=== PATIENT | male | born 1980 | race African-American/Black ===

== ENCOUNTER 2024-05-12 13:11 | Emergency (ER) | payer BC, SELFPAY ==
[2024-05-12 13:51] LABS: #Basophils 0.1 thou/uL (0.0-0.2); #Lymphocytes 1.8 thou/uL (1.20-3.40); #Monocytes 0.7 thou/uL (0.11-0.59); #Neutrophils 6.3 thou/uL (1.40-6.50); %Basophils 0.9 % (0.0-1.0); %Eosinophils 0.4 % (0.0-10.0); %Lymphocytes 20.5 % (21.0-51.0); %Monocytes 7.5 % (0.0-10.0); %Neutrophils 70.7 % (42.0-75.0); Hemoglobin 10.8 g/dL (14.0-18.0); Mean Corpuscular HGB CONC 27.7 g/dL (32.0-36.0); Mean Corpuscular Hemoglobin 23.2 pg (27.0-31.0); Mean Corpuscular Volume 83.9 fl (78.0-98.0); Mean Platelet Volume 9.2 fL (7.4-10.4); Platelet Count 143 10x3/uL (130-400); RBC Distribution Width 16.7 % (11.5-14.5); Red Blood Cell (RBC) Count 4.65 mill/uL (4.70-6.10); White Blood Cell (WBC) Count 8.9 10x3/uL (4.8-10.8)
[2024-05-12 14:07] LABS: ALT (SGPT) 197 U/L (Less than 45); AST (SGOT) 84 U/L (11-34); Albumin 2.1 g/dL (3.1-4.5); Alkaline Phosphatase 675 U/L (40-110); Anion Gap 20 mmol/L (10-20); BUN (Urea Nitrogen) 31 mg/dL (8.9-20.6); Bilirubin, Total 1.5 mg/dL (0.3-1.2); Calc. Creatinine Clearance 0 mL/min (70-130); Calcium 8.9 mg/dL (7.8-10.44); Carbon Dioxide 22 mmol/L (22-29); Chloride 97 mmol/L (98-107); Estimated GFR 51; Globulin 4.7 g/dL (2.4-3.5); Potassium 4.7 mmol/L (3.5-5.1); Protein, Total 6.8 g/dL (6.0-8.3); Sodium 134 mmol/L (136-145)
[2024-05-12 14:11] LABS: Glucose 438 mg/dL (70-105)
[2024-05-12 14:11] LABS: Troponin I 2.991 ng/mL (< 0.028)
[2024-05-12 14:15] LABS: INR-International Normal Ratio 1.3; Prothrombin Time 16.3 sec (12.0-14.7)
[2024-05-12 14:16] LABS: PTT 26.9 sec (22.9-36.1)
[2024-05-12] MEDS ORDERED: Aspirin Chewable 81 MG TAB ONE (14:24)
[2024-05-12] MEDS ORDERED: Nitroglycerin 0.4 MG TAB 1 EACH ONE (14:24)
[2024-05-12] MEDS ORDERED: Enoxaparin 100 MG (1 mL) SYRINGE ONE (14:25)
[2024-05-12] MEDS ORDERED: Insulin Regular, Human 100 UNIT/ML 10 ML VIAL ONE (14:25)
[2024-05-12] MEDS ORDERED: Vancomycin 1 GM VIAL ONE (14:25)
[2024-05-12] MEDS ORDERED: Sodium Chloride 0.9% 100 ML ONE (14:25)
[2024-05-12] MEDS ORDERED: Cefepime 2 GM VIAL ONE (14:25)
[2024-05-12] MEDS ORDERED: Sodium Chloride 0.9% 1,000 ML ONE (14:25)
[2024-05-12] MEDS ORDERED: Morphine 4 MG/ML VIAL ONE (15:36)
[2024-05-12] MEDS ORDERED: Furosemide 40 MG (4 mL) VIAL ONE (16:42)
[2024-05-12 17:46] LABS: Bilirubin Small (Negative); Blood, Urine Negative (Negative); Glucose, Urine (Dipstick) >=1000 mg/dL (Negative); Ketone, Urine Negative (Negative); Leukocyte Negative (Negative); Nitrite Negative (Negative); Protein, Urine (Dipstick) > or equal to 300 mg/dL (Neg-Trace); pH, Urine 5.5 (5.0-9.0)
[2024-05-12 17:56] LABS: Amphetamine Not Detected (NotDetected); Barbiturates Screen Not Detected (NotDetected); Benzodiazepine Screen Not Detected (NotDetected); Cocaine Metabolite Screen Detected (NotDetected); Methadone Not Detected (NotDetected); Methamphetamine Not Detected (NotDetected); Opiate Screen Detected (NotDetected); Oxycodone Screen Not Detected (NotDetected); Phencyclidine (PCP) Not Detected (NotDetected); THC/Cannabinoid Screen Not Detected (NotDetected); Tricyclic Screen Not Detected (NotDetected)
[2024-05-12 17:57] LABS: Clarity Hazy (Clear)
[2024-05-12 17:59] LABS: CAUTI Indications for Culture Alt mental st,lethar; RBC/HPF 0-3 HPF (0-3); Squamous Epithelial 0-3 HPF (0-3); WBC/HPF 0-3 HPF (0-3)
[2024-05-12 18:00] LABS: Urine Culture Reflex No No
== END 2024-05-12 18:59 | disposition short-term general hospital (02) ==
LOC: NAV ERS 13:11
DX: I21.4 Non-ST elevation (NSTEMI) myocardial infarction (principal); I13.0 Hypertensive heart and chronic kidney disease with heart failure and stage 1 through stage 4 chronic kidney disease, or unspecified chronic kidney disease; E11.22 Type 2 diabetes mellitus with diabetic chronic kidney disease; N18.30 Chronic kidney disease, stage 3 unspecified; I50.9 Heart failure, unspecified; J18.9 Pneumonia, unspecified organism; Z79.4 Long term (current) use of insulin; Z86.73 Personal history of transient ischemic attack (TIA), and cerebral infarction without residual deficits; Z95.0 Presence of cardiac pacemaker; Z79.01 Long term (current) use of anticoagulants; Z79.84 Long term (current) use of oral hypoglycemic drugs; Z79.899 Other long term (current) drug therapy
CPT/HCPCS: 70450; 71275; 80053; 80306; 80307; 81001; 83605; 83880; 84484; 85025; 85610; 85730; 87040; 93005; 96361; 96365; 96366; 96368; 96372; 96374; 96375; J0692; J1650; J1815; J1940; J2270; J3370; J7030